=== PATIENT | female | born 1965 | race Caucasian/White ===

== ENCOUNTER 2020-04-25 13:52 | Observation (INO) ==
[2020-04-25] MEDS ORDERED: SODIUM CHLORIDE 0.9% 1000ML 1,000 ML IV STA (14:19)
[2020-04-25] MEDS ORDERED: NITROGLYCERIN 2% OINTMENT 30GM TUBE EXT STA (14:19)
--- NOTE | 2020-04-25 14:19 | Emergency Department Note ---
Impression & Plan Substernal chest pain ED Provider Note INFORMANT: Patient ED PROVIDER(S): Edward Quigley MD CHIEF COMPLAINT: Chest pain PLAN: Disposition: Admitted Condition: Good MEDICAL DECISION MAKING: Patient presented with substernal chest pain that radiated to the right. She had an abnormal ECG with anterior T wave inversions. The patient was given nitroglycerin and aspirin prehospital. She had Nitropaste applied in the ER. She was also hydrated with normal saline. Chest x-ray was unremarkable. Her CBC and chemistry panel were unremarkable except for hyperglycemia. Troponin was negative x1. Patient was treated with IV insulin. Given her risk factors further management in the hospital was deemed appropriate. Patient and significant other were in agreement. Consultation was made with the [facility] service. Triage Nursing notes reviewed and agree them. Vital Signs: reviewed and remarkable for no significant abnormalities Differential diagnosis: Cardiac ischemia, aortic dissection, pulmonary embolism, pneumothorax, pneumonia, pericarditis, myocarditis, esophageal rupture, GERD, cholecystitis, pancreatitis, musculoskeletal, as well as other pathologies. Diagnostics interpreted by me: ECG: Rate:78 Rhythm:Normal sinus [place]:Normal QRS:Normal ST segements:No elevation or depression. Ant TWI. Other:No PACs or PVCs. When compared to 08/03/18j Ant TWI has replaced NST anteriorly. Cardiac Monitoring:Cardiac monitoring ordered by me: The patient was placed on continuous cardiac monitoring and observed. It revealed a normal sinus rhythm at 75 beats per minute without ectopy or evidence of dysrhythmia. Imaging studies: Chest x-ray. Findings: A chest x-ray was performed and revealed no pneumothorax, effusion, infiltrate, pulmonary edema, free air under the diaphragm, or wide mediastinum. Consultation(s): Dr. Lundberg [facility] service HPI: The patient is a 54 year old female who presents to the Emergency Room with complaints of substernal chest pain. This started several hours ago and is sharp. The patient also notes the following associated symptoms, pain radiating to the right back, SOB. The patient has been given 2 NTG and ASA by EMS successfully relieving factors. Current pain is rated as 2/10. Pain was an 8/10. No covid exposures. Pt has been coughing for several weeks and was tested for COVID, negative. Pt does smoke. Pt denies LOC, headache, fevers, chills, diaphoresis, visual changes, neck pain, nausea, vomiting, abdominal pain, back pain, melena, hematochezia, urinary symptoms, numbness, weakness, lymphadenopathy, rash, or other complaints. ROS: See above HPI for pertinent positives & negatives. A total of 10 systems reviewed and were otherwise negative. PAST MEDICAL HISTORY:See Below, DM PAST SURGICAL HISTORY:See Below,Appy, C section FAMILY HISTORY:See Below SOCIAL HISTORY:See Below, Smoker HOME MEDICATIONS:See Below ALLERGIES:See Below VITALS:See Below PHYSICAL EXAMINATION: GENERAL: Awake, alert, well-appearing, in no distress HENT: Normocephalic, atraumatic. Oropharynx unremarkable. EYES: Normal conjunctiva. Sclera non-icteric. NECK: Inspection normal. Non-tender. Supple. No nuchal rigidity. FROM. No masses. RESPIRATORY: Clear to auscultation. No wheezes. No rales. Normal respiratory effort. CARDIAC: Normal rate. Normal rhythm. No murmurs. No rubs. Extremities warm and well perfused. Pulses equal. No JVD. GI: Soft, non-distended. No tenderness to palpation. No rebound or guarding. No masses. RECTAL: Deferred. MUSCULOSKELETAL: Atraumatic. Chest examination reveals no tenderness. The back is symmetrical on inspection without obvious abnormality. There is no CVA tenderness to palpation. No joint edema. LOWER EXTREMITIES: Calves are equal size bilaterally and non-tender. No edema. No discoloration. NEURO: Normal sensorium. No sensory or motor deficits noted. SKIN: No rash or jaundice noted. Edward Quigley MD Past Med/Surg History Medical History (Updated 04/25/20 @ 17:43 by Maximilian Lundberg MD) Elevated LFTs Social History Smoking Status: Current every day smoker Cigarettes Per Day: 20; Do You Dip or Chew Tobacco: No; Hx Alcohol Use: Yes Alcohol type: beer Hx Substance Use: No Preferred Language: Mauritanian Communication Ability: Effective Traveling Inventory Associate Required: No Beliefs That Will Affect Care: None Current Living Situation: Spouse Other Information That Helps Us Care for You: No Feels Safe at Home: Yes Safety Concerns: Feels Safe At This Time Assistive Devices: None Allergies Allergies Allergy/AdvReac Type Severity Reaction Status Date / Time bee venom protein (honey bee) Allergy Severe Anaphylaxis Verified 04/25/20 15:43 cephalexin [From Keflex] Allergy Mild Rash Verified 04/25/20 17:23 erythromycin base Allergy Mild Rash Verified 04/25/20 15:43 hydrocodone Allergy Mild RASH/VOMITI Verified 04/25/20 15:43 NG Macrolide Antibiotics Allergy Mild RASH Verified 04/25/20 15:43 meperidine Allergy Mild RASH/VOMITI Verified 04/25/20 15:43 NG Sulfa (Sulfonamide Allergy Mild RASH Verified 04/25/20 15:43 Antibiotics) sulfamethoxazole Allergy Mild RASH Verified 04/25/20 15:43 trimethoprim Allergy Mild RASH Verified 04/25/20 15:43 varenicline [From Chantix] AdvReac Intermediate INCREASE Verified 04/25/20 15:44 DEPRESSION Home Meds Home Medications Medication Instructions Recorded Confirmed baclofen 10 mg PO HS 04/25/20 04/25/20 citalopram [Celexa] 40 mg PO QAM 04/25/20 04/25/20 diclofenac sodium 75 mg PO BID 04/25/20 04/25/20 doxepin 100 mg PO HS 04/25/20 04/25/20 empagliflozin [Jardiance] 10 mg PO DAILY 04/25/20 04/25/20 epinephrine [EpiPen] 0.3 mg IM DIRECTED PRN 04/25/20 04/25/20 omeprazole 20 mg PO QAM 04/25/20 04/25/20 propranolol 10 mg PO QAM 04/25/20 04/25/20 quetiapine 50 mg PO TID 04/25/20 04/25/20 ropinirole 0.5 mg PO HS 04/25/20 04/25/20 simvastatin 40 mg PO HS 04/25/20 04/25/20 topiramate 25 mg PO BID 04/25/20 04/25/20 Results & Data (ED) Vital Signs Vital Signs - 24 hr 04/25/20 13:57 04/25/20 14:30 04/25/20 15:02 Temperature 37.0 C Temperature Source Oral Pulse Rate 78 Pulse Rate [Apical] 75 71 Respiratory Rate 16 20 18 Respiratory Effort / Characteristics Respiratory Depth Respiratory Pattern Blood Pressure 108/67 Blood Pressure [Right Arm] 105/61 87/63 L Blood Pressure Mean 80 Blood Pressure Mean [Right Arm] 75 71 Pulse Oximetry 94 94 94 Oxygen Delivery Method Room Air Room Air Room Air Sepsis Recent Fever Within 48 Hours No Sepsis New/Unexplained Change in Mental Status N/A Sepsis Action Taken by Nursing No Action Required 04/25/20 17:04 Temperature Temperature Source Pulse Rate Pulse Rate [Apical] 83 Respiratory Rate 20 Respiratory Effort / Characteristics Non-Labored Spontaneous Respiratory Depth Normal Respiratory Pattern Regular Blood Pressure Blood Pressure [Right Arm] 110/77 Blood Pressure Mean Blood Pressure Mean [Right Arm] 88 Pulse Oximetry 93 Oxygen Delivery Method Room Air Sepsis Recent Fever Within 48 Hours Sepsis New/Unexplained Change in Mental Status Sepsis Action Taken by Nursing Laboratory Data Result diagrams: 04/25/20 13:50 04/25/20 13:50 Lab Results 04/25/20 04/25/20 04/25/20 Range/Units 13:50 13:50 13:50 WBC 6.99 (4.8-10.8) K/uL RBC 4.23 (4.2-5.4) M/uL Hgb 12.8 (12.0-16.0) g/dL Hct 37.7 (37-47) % MCV 89.1 (80-100) fL MCH 30.3 (25-34) pg MCHC 34.0 (32-36) g/dL RDW Std Deviation 44.6 (36.4-46.3) fL RDW Coeff of Radha 13.6 (11.5-14.5) % Plt Count 266 (130-400) K/uL MPV 11.8 H (7.4-10.4) fL Immature Gran % (Auto) 0.1 % Neut % (Auto) 54.4 % Lymph % (Auto) 39.6 % [place]tinger % (Auto) 3.7 % Eos % (Auto) 1.9 % Baso % (Auto) 0.3 % Neut # (Auto) 3.80 (1.4-6.5) K/uL Lymph # (Auto) 2.77 (1.2-3.4) K/uL [place] # (Auto) 0.26 (0.11-0.59) K/uL Eos # (Auto) 0.13 (0-0.5) K/uL Baso # (Auto) 0.02 (0-0.2) K/uL Immature Gran # (Auto) 0.01 (0.00-0.02) K/uL PT 10.2 (9.0-12.0) Seconds INR 1.0 (0.9-1.1) APTT 31.0 (21.0-31.0) Seconds PTT Ratio 1.1 D-Dimer 390 (0-500) ug/L FEU Sodium 135 L (136-145) mmol/L Potassium 3.6 (3.5-5.1) mmol/L Chloride 104 (98-107) mmol/L Carbon Dioxide 23 (21-32) mmol/L Anion Gap 8.0 (3-11) BUN 10 (7-18) mg/dl Creatinine 1.05 (0.6-1.2) mg/dl Est Cr Clr Drug Dosing 57.3 ml/min Est GFR ( Amer) 69.7 Est GFR (Non-Af Amer) 60.2 BUN/Creatinine Ratio 9.4 L (10-20) Glucose 390 H* (70-99) mg/dl POC Glucose (70-99) mg/dl Calcium 9.8 (8.5-10.1) mg/dl Total Bilirubin 0.6 (0.2-1) mg/dl AST 73 H (15-37) U/L ALT 135 H (12-78) U/L Alkaline Phosphatase 137 H (45-117) U/L Troponin I < 0.015 (0-0.045) ng/ml Total Protein 7.7 (6.4-8.2) gm/dl Albumin 3.7 (3.4-5.0) gm/dl Globulin 4.0 (2.5-4.0) gm/dl Albumin/Globulin Ratio 0.9 (0.9-2) Lipase 380 (73-393) U/L Beta-Hydroxybutyric Acd 0.69 (0.2-2.81) mg/dl 04/25/20 Range/Units 16:39 WBC (4.8-10.8) K/uL RBC (4.2-5.4) M/uL Hgb (12.0-16.0) g/dL Hct (37-47) % MCV (80-100) fL MCH (25-34) pg MCHC (32-36) g/dL RDW Std Deviation (36.4-46.3) fL RDW Coeff of Radha (11.5-14.5) % Plt Count (130-400) K/uL MPV (7.4-10.4) fL Immature Gran % (Auto) % Neut % (Auto) % Lymph % (Auto) % [place]ting[place] % (Auto) % Eos % (Auto) % Baso % (Auto) % Neut # (Auto) (1.4-6.5) K/uL Lymph # (Auto) (1.2-3.4) K/uL [place] # (Auto) (0.11-0.59) K/uL Eos # (Auto) (0-0.5) K/uL Baso # (Auto) (0-0.2) K/uL Immature Gran # (Auto) (0.00-0.02) K/uL PT (9.0-12.0) Seconds INR (0.9-1.1) APTT (21.0-31.0) Seconds PTT Ratio D-Dimer (0-500) ug/L FEU Sodium (136-145) mmol/L Potassium (3.5-5.1) mmol/L Chloride (98-107) mmol/L Carbon Dioxide (21-32) mmol/L Anion Gap (3-11) BUN (7-18) mg/dl Creatinine (0.6-1.2) mg/dl Est Cr Clr Drug Dosing ml/min Est GFR ( Amer) Est GFR (Non-Af Amer) BUN/Creatinine Ratio (10-20) Glucose (70-99) mg/dl POC Glucose 325 H* (70-99) mg/dl Calcium (8.5-10.1) mg/dl Total Bilirubin (0.2-1) mg/dl AST (15-37) U/L ALT (12-78) U/L Alkaline Phosphatase (45-117) U/L Troponin I (0-0.045) ng/ml Total Protein (6.4-8.2) gm/dl Albumin (3.4-5.0) gm/dl Globulin (2.5-4.0) gm/dl Albumin/Globulin Ratio (0.9-2) Lipase (73-393) U/L Beta-Hydroxybutyric Acd (0.2-2.81) mg/dl Administered Medications Baclofen (Baclofen 10 Mg Tab) 10 mg PO HS ANNE-MARIE Stop: 05/25/20 20:59 Last Admin: 04/25/20 20:09 Dose: 10 mg Documented by: [id number] Doxepin HCl (Doxepin Hcl 50 Mg Capsule) 100 mg PO HS ANNE-MARIE Stop: 05/25/20 20:59 Last Admin: 04/25/20 20:10 Dose: 100 mg Documented by: [id number] Heparin Sodium (Porcine) (Heparin Sod 5,000 Unit/0.5 Ml Vial) 5,000 units SQ Q12 ANNE-MARIE Stop: 05/25/20 20:59 Last Admin: 04/25/20 20:08 Dose: 5,000 units Documented by: [id number] Cosigned by: [id number] Insulin Aspart (Insulin Aspart 100 Units/Ml 3 Ml Pen) 0 units SC ACHS ANNE-MARIE Stop: 05/25/20 20:59 Last Admin: 04/25/20 20:54 Dose: 5 units Documented by: [id number] Cosigned by: [id number] Quetiapine Fumarate (Quetiapine Fumarate 25 Mg Tablet) 50 mg PO TID ANNE-MARIE Stop: 05/25/20 20:59 Last Admin: 04/25/20 20:09 Dose: 50 mg Documented by: [id number] Ropinirole HCl (Ropinirole Hcl 0.25 Mg Tablet) 0.5 mg PO HS ANNE-MARIE Stop: 05/25/20 20:59 Last Admin: 04/25/20 20:09 Dose: 0.5 mg Documented by: [id number] Simvastatin (Simvastatin 40 Mg Tab) 40 mg PO HS ANNE-MARIE Stop: 05/25/20 20:59 Last Admin: 04/25/20 20:09 Dose: 40 mg Documented by: [id number] Topiramate (Topiramate 25 Mg Tab) 25 mg PO BID ANNE-MARIE Stop: 05/25/20 20:59 Last Admin: 04/25/20 20:30 Dose: 25 mg Documented by: [id number] Discontinued Medications Sodium Chloride (Nss 1000ml) 1,000 mls @ 125 mls/hr IV .Q8H STA Stop: 04/25/20 22:18 Last Infusion: 04/25/20 17:48 Dose: 0 mls/hr Documented by: [id number] Admin: 04/25/20 15:02 Dose: 125 mls/hr Documented by: [id number] Insulin Human Regular (Novolin-R Insulin Per Unit Charge) 10 units IV NOW STA Stop: 04/25/20 15:59 Last Admin: 04/25/20 17:05 Dose: 10 units Documented by: [id number] Cosigned by: [id number] Ioversol (Optiray 320 125ml) 117 ml IV ONCE ONE Stop: 04/25/20 16:10 Last Admin: 04/25/20 16:10 Dose: 117 ml Documented by: [id number] Nitroglycerin (Nitroglycerin 2% Ointment 30gm Tube) 0.5 inch EXT NOW STA Stop: 04/25/20 14:20 Last Admin: 04/25/20 15:02 Dose: 0.5 inch Documented by: [id number] Pantoprazole Sodium (Pantoprazole 40 Mg Tab) 40 mg PO NOW STA Stop: 04/25/20 17:20 Last Admin: 04/25/20 17:30 Dose: 40 mg Documented by: [id number] Discharge Plan Visit Data Chief Complaint: Chest Pain ED Provider: Edward Quigley Discharge Problem: Substernal chest pain Patient Disposition: Admitted As Inpatient Discharge Instructions Interventions: ED Discharge Assessment Last Done: 04/25/20 17:51
[2020-04-25 14:31] LABS: Basophils # (auto) 0.02 K/uL (0-0.2); Basophils % (auto) 0.3 %; Eosinophils # (auto) 0.13 K/uL (0-0.5); Eosinophils % (auto) 1.9 %; Hematocrit (blood only) 37.7 % (37-47); Hemoglobin 12.8 g/dL (12.0-16.0); Immature Granulocytes # (auto) 0.01 K/uL (0.00-0.02); Immature Granulocytes % (auto) 0.1 %; Lymphocytes # (auto) 2.77 K/uL (1.2-3.4); Lymphocytes % (auto) 39.6 %; Mean Corpuscular Hemoglobin 30.3 pg (25-34); Mean Corpuscular Volume 89.1 fL (80-100); Mean Platelet Volume 11.8 fL (7.4-10.4); Monocytes # (auto) 0.26 K/uL (0.11-0.59); Monocytes % (auto) 3.7 %; Neutrophils % (auto) 54.4 %; Platelet Count 266 K/uL (130-400); RDW Coefficient of Variation 13.6 % (11.5-14.5); RDW Standard Deviation 44.6 fL (36.4-46.3); Red Blood Count 4.23 M/uL (4.2-5.4); White Blood Count 6.99 K/uL (4.8-10.8)
--- NOTE | 2020-04-25 14:32 | XRay Report ---
XR chest 1V portable HISTORY: 54 years-old Female Chest Pain acute atypical chest pain COMPARISON: None TECHNIQUE: Portable AP view of the chest FINDINGS: Cardiomediastinal and hilar silhouettes are within normal limits. No pneumothorax, pleural effusion, or overt pulmonary edema. Ill-defined right lung base opacity is suggestive of summation density. Rem ote fracture of the posterior left sixth rib. IMPRESSION: Ill-defined subtle right lung base opacity is suggestive of summation density with atelec tasis or developing pneumonia considered less likely. ACT 112: Negative or not required by law. The above report was generated using voice recognition software. It may contain grammatical, syntax o r spelling errors. Electronically signed by: Freddie Petersen M.D. 04/25/2020 2:30 PM
[2020-04-25 15:01] LABS: D Dimer 390 ug/L FEU (0-500); Partial Thromboplastin Ratio 1.1; Prothrombin Time 10.2 Seconds (9.0-12.0)
[2020-04-25 15:47] LABS: Alanine Aminotransferase 135 U/L (12-78); Albumin Globulin Ratio 0.9 (0.9-2); Albumin Level 3.7 gm/dl (3.4-5.0); Alkaline Phosphatase 137 U/L (45-117); Aspartate Aminotransferase 73 U/L (15-37); BUN Creatinine Ratio 9.4 (10-20); Bilirubin,Total 0.6 mg/dl (0.2-1); Blood Urea Nitrogen 10 mg/dl (7-18); Calcium 9.8 mg/dl (8.5-10.1); Carbon Dioxide 23 mmol/L (21-32); Chloride 104 mmol/L (98-107); Creatinine Clr Calc Pharmacy 57.3 ml/min; Est GFR (African American) 69.7; Est GFR (Non-African American) 60.2; Glucose 390 mg/dl (70-99); Lipase 380 U/L (73-393); Potassium 3.6 mmol/L (3.5-5.1); Sodium 135 mmol/L (136-145); Total Protein 7.7 gm/dl (6.4-8.2); Troponin I < 0.015 ng/ml (0-0.045)
[2020-04-25] MEDS ORDERED: NovoLIN-R INSULIN PER UNIT CHARGE IV STA (15:58)
[2020-04-25 16:00] LABS: Beta-Hydroxybutyrate 0.69 mg/dl (0.2-2.81)
[2020-04-25] MEDS ORDERED: OPTIRAY 320 125ml IV ONE (16:09)
--- NOTE | 2020-04-25 16:21 | CT Scan Report ---
CT ANGIOGRAM OF THE CHEST CLINICAL HISTORY: Right-sided chest pain. Possible pulmonary embolism COMPARISON STUDY: Chest x-ray dated 04/25/2020 TECHNIQUE: Following the IV administration of 117 mL of Optiray-320, CT angiogram of the thorax was p erformed from the thoracic inlet to the lung bases utilizing the pulmonary embolus protocol. Images a re reviewed in the axial, sagittal, and coronal planes. IV contrast was administered without complica tion. MIP imaging was performed. A dose lowering technique was utilized adhering to the principles o f ALARA. CT DOSE: 326.90 mGy.cm FINDINGS: Visualized portions the upper abdomen reveal hepatic steatosis. There is a paratracheal lymph node the upper limits of normal in size. There is no hilar or axillary lymphadenopathy. There was no evidence of thoracic aortic dilatation. There were no pulmonary artery filling defects to indicate acute pulmonary embolism. No pleural effusions are visualized. There is pulmonary emphysema. There are minimal dependent atelectatic changes. There is a slight mosa ic attenuation pattern suggesting air trapping. There are no areas of parenchymal consolidation to in dicate pneumonia. IMPRESSION: 1. Pulmonary emphysema with evidence of air trapping 2. No evidence of focal pulmonary consolidation 2. No evidence of acute pulmonary embolism. ACT 112: Negative or not required by law. Electronically signed by: Chaparro Dupree M.D. 04/25/2020 4:19 PM
[2020-04-25] MEDS ORDERED: ALBUTEROL 0.083% NEBU SOLN 3 ML VIAL NEB PRN (17:17)
[2020-04-25] MEDS ORDERED: ALBUTEROL HFA 8 GM INHALER INH PRN (17:17)
[2020-04-25] MEDS ORDERED: PANTOprazole 40 MG TAB PO STA (17:19)
[2020-04-25] MEDS ORDERED: NITROGLYCERIN SL 0.4 MG/TAB TAB SL PRN (17:47)
--- NOTE | 2020-04-25 17:47 | History & Physical Report ---
Date of Service April 25, 2020 Assessment & Plan (1) Substernal chest pain: Has been complaining of substernal chest pain at work since this morning The pain radiates to the back in between shoulder blades with associated minimal shortness of breath EKG showed possible increased inversion in anterior leads initial troponin negative Observing telemetry with serial cardiac enzymes Cardiology consult for possible stress morning (2) Major depression: No acute issues Continue current medication (3) COPD (chronic obstructive pulmonary disease): Uses albuterol as needed Continues to smoke No acute exacerbation We will try nebulized bronchodilator as well (4) CKD (chronic kidney disease), stage III: Monitor PRP (5) Diabetes type 2, uncontrolled: Blood sugar is more than 350 Hold oral medications and put her on sliding scale Check hemoglobin A1c (6) Migraine: (7) GERD (gastroesophageal reflux disease): Denies any symptoms but has been taking diclofenac sodium 75 mg twice daily Substernal chest pain could be secondary to peptic ulcer disease We will hold off any diclofenac Continue omeprazole DVT prophylaxis Subcu heparin CODE STATUS Full History of Present Illness Chief Complaint: Chest tightness/pain with shortness of breath since this morning Primary Care Provider: Diogo Buckner DO She is a 54-year-old female with significant past medical history including moderate COPD, tobacco use disorder, type 2 diabetes, chronic kidney disease stage III, depression, hyperlipidemia and migraine has been complaining of chest tightness/pain while at work today. Her pain went to the back in between shoulder blades and she did not have any associated shortness of breath at that time. She denies any radiation of the pain to the extremities or to the neck and when asking further questioning she mentions to have some wheezing associated with shortness of breath. She denies any abdominal pain, any nausea and/or vomiting. She has been weak recently but denies any fever and/or chills. She has been taking diclofenac sodium 75 mg twice a day. In ER she was hemodynamically stable and EKG did not show questionable increase anterior T inversion without any increase in troponin and a CTA unremarkable. She was admitted to telemetry unit to rule out possible ACS. Allergies Allergy/AdvReac Type Severity Reaction Status Date / Time bee venom protein (honey bee) Allergy Severe Anaphylaxis Verified 04/25/20 15:43 cephalexin [From Keflex] Allergy Mild Rash Verified 04/25/20 17:23 erythromycin base Allergy Mild Rash Verified 04/25/20 15:43 hydrocodone Allergy Mild RASH/VOMITI Verified 04/25/20 15:43 NG Macrolide Antibiotics Allergy Mild RASH Verified 04/25/20 15:43 meperidine Allergy Mild RASH/VOMITI Verified 04/25/20 15:43 NG Sulfa (Sulfonamide Allergy Mild RASH Verified 04/25/20 15:43 Antibiotics) sulfamethoxazole Allergy Mild RASH Verified 04/25/20 15:43 trimethoprim Allergy Mild RASH Verified 04/25/20 15:43 varenicline [From Chantix] AdvReac Intermediate INCREASE Verified 04/25/20 15:44 DEPRESSION Home Medications Home Medications Medication Instructions Recorded Confirmed Type baclofen 10 mg PO HS 04/25/20 04/25/20 History citalopram [Celexa] 40 mg PO QAM 04/25/20 04/25/20 History diclofenac sodium 75 mg PO BID 04/25/20 04/25/20 History doxepin 100 mg PO HS 04/25/20 04/25/20 History empagliflozin [Jardiance] 10 mg PO DAILY 04/25/20 04/25/20 History epinephrine [EpiPen] 0.3 mg IM DIRECTED PRN 04/25/20 04/25/20 History omeprazole 20 mg PO QAM 04/25/20 04/25/20 History propranolol 10 mg PO QAM 04/25/20 04/25/20 History quetiapine 50 mg PO TID 04/25/20 04/25/20 History ropinirole 0.5 mg PO HS 04/25/20 04/25/20 History simvastatin 40 mg PO HS 04/25/20 04/25/20 History topiramate 25 mg PO BID 04/25/20 04/25/20 History Past Med/Surg History Medical History (Updated 04/25/20 @ 17:43 by Maximilian Lundberg MD) Elevated LFTs Social History Smoking Status: Current every day smoker Cigarettes Per Day: 20; Do You Dip or Chew Tobacco: No; Hx Alcohol Use: Yes Alcohol type: beer Hx Substance Use: No Preferred Language: Estonian Communication Ability: Effective Director Of Clinical Applications Required: No Beliefs That Will Affect Care: None Current Living Situation: Spouse Other Information That Helps Us Care for You: No Feels Safe at Home: Yes Safety Concerns: Feels Safe At This Time Assistive Devices: Glasses Review of Systems Review of Systems: All systems reviewed & are unremarkable except as noted in HPI & below Physical Exam Physical Exam: Lying in bed comfortably Constitutional: well developed and well nourished; no acute distress and not ill appearing Eyes: PERRL, conjunctivae normal, anicteric sclerae ENMT: external ear and nose normal, oropharynx normal Neck: trachea midline, no thyromegaly Respiratory: normal respiratory effort; no respiratory distress Auscultation: lungs clear to auscultation bilaterally and + wheezes (Minimal wheezing anteriorly) Cardiovascular: Rate/Rhythm: regular rate and regular rhythm Heart Sounds: no murmur Extremities: no edema Gastrointestinal (Abdomen): Inspection/Auscultation: abdomen normal to inspection and normal bowel sounds; abdomen not distended Percussion/Palpation: abdomen soft; abdomen nontender Musculoskeletal: No acute arthritis involving any joints Neurologic: moves all extremities; no focal motor deficits Psychiatric: A+Ox3, euthymic affect Lymphatic: no cervical or axillary lymphadenopathy Results & Data Results & Data ([facility]) Vital Signs (Past 12 Hours) Vital Signs Temp Pulse Pulse Resp BP BP Pulse Ox 04/25/20 17:04 83 20 110/77 93 04/25/20 15:02 71 18 87/63 L 94 04/25/20 14:30 75 20 105/61 94 04/25/20 13:57 37.0 C 78 16 108/67 94 Laboratory Results Short CBC 04/25/20 Range/Units 13:50 WBC 6.99 (4.8-10.8) K/uL Hgb 12.8 (12.0-16.0) g/dL Hct 37.7 (37-47) % Plt Count 266 (130-400) K/uL BMP 04/25/20 13:50 Sodium 135 L Potassium 3.6 Chloride 104 Carbon Dioxide 23 BUN 10 Creatinine 1.05 Glucose 390 H* Calcium 9.8 Cardiac Enzymes 04/25/20 Range/Units 13:50 Troponin I < 0.015 (0-0.045) ng/ml Liver Function 04/25/20 Range/Units 13:50 Total Bilirubin 0.6 (0.2-1) mg/dl AST 73 H (15-37) U/L ALT 135 H (12-78) U/L Alkaline Phosphatase 137 H (45-117) U/L Albumin 3.7 (3.4-5.0) gm/dl Medications Administered Current Inpatient Medications Albuterol (Albuterol Hfa 8 Gm Inhaler) 2 puffs INH Q6H PRN PRN Reason: Wheezing Stop: 05/25/20 17:29 Albuterol (Albuterol 0.083% Nebu Soln 3 Ml Vial) 2.5 mg NEB Q6R PRN PRN Reason: Wheezing Stop: 05/25/20 17:16 Sodium Chloride (Nss 1000ml) 1,000 mls @ 125 mls/hr IV .Q8H STA Stop: 04/25/20 22:18 Last Admin: 04/25/20 15:02 Dose: 125 mls/hr Documented by: Code Status & VTE Plan VTE Prophylaxis Plan VTE Prophylaxis will be ordered: Yes
--- NOTE | 2020-04-25 18:00 | Electrocardiogram Report ---
Test Reason : Blood Pressure : / mmHG Vent. Rate : 078 BPM Atrial Rate : 078 BPM P-R Int : 142 ms QRS Dur : 082 ms QT Int : 428 ms P-R-T Axes : 042 060 026 degrees QTc Int : 487 ms Normal sinus rhythm Prolonged QT Abnormal ECG When compared with ECG of 07-MAR-2013 19:09, T wave inversion more evident in Anterior leads Confirmed by Sang Mazariegos ([id number]) on 04/25/2020 5:59:50 PM Referred By: ER Confirmed By:Alnozo Mazariegos
--- NOTE | 2020-04-25 18:02 | Electrocardiogram Report ---
Test Reason : Blood Pressure : / mmHG Vent. Rate : 073 BPM Atrial Rate : 073 BPM P-R Int : 144 ms QRS Dur : 082 ms QT Int : 432 ms P-R-T Axes : 068 055 029 degrees QTc Int : 475 ms Normal sinus rhythm Prolonged QT Abnormal ECG When compared with ECG of 25-APR-2020 13:57, (unconfirmed) No significant change was found Confirmed by Sang Mazariegos ([id number]) on 04/25/2020 6:02:23 PM Referred By: REFERRED SELF Confirmed By:Alonzo Mazariegos
[2020-04-25] MEDS ORDERED: DEXTROSE 50% 50 ML SYRINGE IV PRN (19:00)
[2020-04-25] MEDS ORDERED: GLUCOSE 40% GEL 15 GM TUBE PO PRN (19:00)
[2020-04-25] MEDS ORDERED: CARBOHYDRATES FOR HYPOGLYCEMIA PO PRN (19:00)
[2020-04-25] MEDS ORDERED: GLUCOSE 10 TABS/TUBE PO PRN (19:00)
[2020-04-25] MEDS ORDERED: GLUCAGON FOR INJ 1 MG VIAL IM PRN (19:00)
[2020-04-25] MEDS: HEPARIN SOD 5,000 UNIT/0.5 ML VIAL SQ SCH (20:08)
[2020-04-25] MEDS: QUETIAPINE FUMARATE 25 MG TABLET PO SCH (20:09)
[2020-04-25] MEDS: TOPIRAMATE 25 MG TAB PO SCH (20:30)
[2020-04-25] MEDS: INSULIN ASPART 100 UNITS/ML 3 ML PEN SC SCH (20:54)
[2020-04-25] MEDS ORDERED: DOXEPIN HCL 50 MG CAPSULE PO SCH (21:00)
[2020-04-25] MEDS ORDERED: ROPINIROLE HCL 0.25 MG TABLET PO SCH (21:00)
[2020-04-25] MEDS ORDERED: BACLOFEN 10 MG TAB PO SCH (21:00)
[2020-04-25] MEDS ORDERED: SIMVASTATIN 40 MG TAB PO SCH (21:00)
[2020-04-26 02:16] LABS: BUN Creatinine Ratio 10.6 (10-20); Blood Urea Nitrogen 11 mg/dl (7-18); Calcium 8.8 mg/dl (8.5-10.1); Carbon Dioxide 28 mmol/L (21-32); Chloride 109 mmol/L (98-107); Creatinine Clr Calc Pharmacy 56.8 ml/min; Est GFR (African American) 68.9; Est GFR (Non-African American) 59.5; Glucose 200 mg/dl (70-99); Magnesium 1.8 mg/dl (1.8-2.4); Potassium 3.5 mmol/L (3.5-5.1); Sodium 141 mmol/L (136-145)
[2020-04-26 02:21] LABS: Troponin I < 0.015 ng/ml (0-0.045)
[2020-04-26 02:32] LABS: Basophils # (auto) 0.02 K/uL (0-0.2); Basophils % (auto) 0.3 %; Eosinophils # (auto) 0.17 K/uL (0-0.5); Eosinophils % (auto) 2.5 %; Hematocrit (blood only) 35.3 % (37-47); Hemoglobin 11.7 g/dL (12.0-16.0); Immature Granulocytes # (auto) 0.02 K/uL (0.00-0.02); Immature Granulocytes % (auto) 0.3 %; Lymphocytes # (auto) 3.11 K/uL (1.2-3.4); Lymphocytes % (auto) 46.2 %; Mean Corpuscular Hemoglobin 30.1 pg (25-34); Mean Corpuscular Hgb Conc 33.1 g/dL (32-36); Mean Corpuscular Volume 90.7 fL (80-100); Mean Platelet Volume 11.7 fL (7.4-10.4); Monocytes # (auto) 0.35 K/uL (0.11-0.59); Monocytes % (auto) 5.2 %; Neutrophils # (auto) 3.06 K/uL (1.4-6.5); Neutrophils % (auto) 45.5 %; Platelet Count 234 K/uL (130-400); RDW Coefficient of Variation 13.8 % (11.5-14.5); RDW Standard Deviation 45.6 fL (36.4-46.3); Red Blood Count 3.89 M/uL (4.2-5.4); White Blood Count 6.73 K/uL (4.8-10.8)
[2020-04-26] MEDS: INSULIN ASPART 100 UNITS/ML 3 ML PEN SC SCH ×3 (08:34→17:12)
[2020-04-26] MEDS: HEPARIN SOD 5,000 UNIT/0.5 ML VIAL SQ SCH (08:34)
[2020-04-26] MEDS: QUETIAPINE FUMARATE 25 MG TABLET PO SCH ×2 (08:35→14:00)
[2020-04-26] MEDS: TOPIRAMATE 25 MG TAB PO SCH (08:35)
--- NOTE | 2020-04-26 08:49 | Cardiology Consultation ---
Date of Consultation April 26, 2020 Assessment & Plan (1) Substernal chest pain: Patient with atypical chest pain, possibly musculoskeletal in nature based on description, worse with repetitive movements of her upper extremities while at work. Negative troponin x3 since admission She does have an abnormal EKG with anterior T wave inversions, similar to outpatient EKG's in 2019. At that time she underwent dobutamine stress echo which was negative for ischemia. Given her risk factors of CAD including DM, chronic tobacco abuse and family history of CABG, I think ischemic work up is warranted with repeat dobutamine stress test prior to discharge. Smoking cessation encouraged. Case discussed with Dr. Jones. Further recommendations pending review of stress test results. Patient to remain NPO until stress test is completed. (2) Abnormal EKG: (3) Tobacco abuse: (4) COPD (chronic obstructive pulmonary disease): Supervising Physician Co-Signing Physician Notes I have reviewed the case with Ramy, examined the medical record and examined the patient. I was also present during her dobutamine stress echocardiogram. By that study, she was negative for ischemia. I believe the patient therefore, can be discharged home as no further cardiac testing is indicated. History of Present Illness Reason for Consultation: Chest pain; abnormal EKG Requesting Physician: Dr. Lundberg Attending Physician: Dr. Jones History of Present Illness Patient is a 54 year old female with past history significant for COPD with chronic tobacco abuse (1 PPD for 40 years), dyslipidemia, DM, and family history of CAD with mother and father having CABG age 60's. She reports intermittent chest tightness over the last 6 months, comes and goes without relation to activity. She reports ongoing dyspnea, which she attributes to chronic tobacco abuse and COPD. She was recently treated for bronchitis. Yesterday when she awoke from sleep, she reported substernal chest "burning" and sharp pains that radiated to her right rib cage and around to her back. She went to work as usual. 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 She describes after about 2 hours, her chest pain progressively got worse with her arm movements. [place] her chest was "sore". No SOB, diaphoresis, palpitations, dizziness at the time. She came to the ER for evaluation due to her ongoing symptoms. Upon arrival to ER, Initial EKG demonstrated T wave inversions in anterior leads. when compared to prior EKG at [facility] in 2013, these T wave inversions were new. However when outpatient records reviewed, this EKG revealed similar findings to 2019 EKG in [facility]. She was treated with SL nitro and nitro patch. Symptoms slowly improved in the ER over the next few hours. Repeat EKG with stable findings. Troponin negative x3 since admission. AT time of consult, patient feeling well. Symptoms resolved and no recurrent chest pain since last night. No unusual SOB. Ongoing cough reported, but this is chronic per patient. No dizziness, syncope or near syncope. no orthopnea, PND or edema. She denies cardiac history of CAD, [place], CHF, valvular disease or arrhythmia. She had a dobutamine stress echo in 2019 due to atypical chest pain and abnormal EKG, which was negative for ischemia. Allergies Allergy/AdvReac Type Severity Reaction Status Date / Time bee venom protein (honey bee) Allergy Severe Anaphylaxis Verified 04/25/20 15:43 cephalexin [From Keflex] Allergy Mild Rash Verified 04/25/20 17:23 erythromycin base Allergy Mild Rash Verified 04/25/20 15:43 hydrocodone Allergy Mild RASH/VOMITI Verified 04/25/20 15:43 NG Macrolide Antibiotics Allergy Mild RASH Verified 04/25/20 15:43 meperidine Allergy Mild RASH/VOMITI Verified 04/25/20 15:43 NG Sulfa (Sulfonamide Allergy Mild RASH Verified 04/25/20 15:43 Antibiotics) sulfamethoxazole Allergy Mild RASH Verified 04/25/20 15:43 trimethoprim Allergy Mild RASH Verified 04/25/20 15:43 varenicline [From Chantix] AdvReac Intermediate INCREASE Verified 04/25/20 15:44 DEPRESSION Home Medications Home Medications Medication Instructions Recorded Confirmed Type baclofen 10 mg PO HS 04/25/20 04/25/20 History citalopram [Celexa] 40 mg PO QAM 04/25/20 04/25/20 History diclofenac sodium 75 mg PO BID 04/25/20 04/25/20 History doxepin 100 mg PO HS 04/25/20 04/25/20 History empagliflozin [Jardiance] 10 mg PO DAILY 04/25/20 04/25/20 History epinephrine [EpiPen] 0.3 mg IM DIRECTED PRN 04/25/20 04/25/20 History omeprazole 20 mg PO QAM 04/25/20 04/25/20 History propranolol 10 mg PO QAM 04/25/20 04/25/20 History quetiapine 50 mg PO TID 04/25/20 04/25/20 History ropinirole 0.5 mg PO HS 04/25/20 04/25/20 History simvastatin 40 mg PO HS 04/25/20 04/25/20 History topiramate 25 mg PO BID 04/25/20 04/25/20 History Patient History Medical History (Updated 04/26/20 @ 09:29 by Sylvia Mccann PA-C) CKD (chronic kidney disease), stage III COPD (chronic obstructive pulmonary disease) Diabetes type 2, uncontrolled Elevated LFTs Major depression Family History (Updated 04/26/20 @ 09:25 by Sylvia Mccann PA-C) Father Coronary heart disease Mother Coronary heart disease Social History Smoking Status: Current every day smoker Cigarettes Per Day: 20; Do You Dip or Chew Tobacco: No; Hx Alcohol Use: Yes Alcohol type: beer Hx Substance Use: No Preferred Language: [place] Island[place] Communication Ability: Effective Hand I Cutter Required: No Beliefs That Will Affect Care: None Current Living Situation: Spouse Other Information That Helps Us Care for You: No Feels Safe at Home: Yes Safety Concerns: Feels Safe At This Time Assistive Devices: None Review of Systems Review of Systems: All systems reviewed & are unremarkable except as noted in HPI & below Physical Exam Constitutional: WD/WN, vitals as above well nourished and average body habitus; no acute distress Neck: normal visual inspection Respiratory: normal respiratory effort Auscultation: + diminished lung sounds; no crackles, no rales, no rhonchi and no wheezes Cardiovascular: RRR, no murmur, no edema Gastrointestinal (Abdomen): normal bowel sounds, soft, nontender, no hepatosplenomegaly Musculoskeletal: no cyanosis or clubbing, extremities motor strength 5/5 Neurologic: PERRL, EOMI, accommodation nl, no face palsy, no dysarthria Psychiatric: A+Ox3, euthymic affect Results & Data ([facility]) Vital Signs (Past 12 Hours) Vital Signs Temp Pulse Pulse Pulse Resp BP Pulse Ox 04/26/20 07:48 36.7 C 73 18 96/58 L 96 04/26/20 02:52 36.6 C 77 16 110/71 91 04/25/20 23:38 36.8 C 76 18 103/59 L 92 04/25/20 23:30 83 Laboratory Results 04/26/20 04/26/20 04/26/20 Range/Units 07:31 01:50 01:50 WBC 6.73 (4.8-10.8) K/uL RBC 3.89 L (4.2-5.4) M/uL Hgb 11.7 L (12.0-16.0) g/dL Hct 35.3 L (37-47) % MCV 90.7 (80-100) fL MCH 30.1 (25-34) pg MCHC 33.1 (32-36) g/dL RDW Std Deviation 45.6 (36.4-46.3) fL RDW Coeff of Radha 13.8 (11.5-14.5) % Plt Count 234 (130-400) K/uL MPV 11.7 H (7.4-10.4) fL Immature Gran % (Auto) 0.3 % Neut % (Auto) 45.5 % Lymph % (Auto) 46.2 % [place] % (Auto) 5.2 % Eos % (Auto) 2.5 % Baso % (Auto) 0.3 % Neut # (Auto) 3.06 (1.4-6.5) K/uL Lymph # (Auto) 3.11 (1.2-3.4) K/uL [place] # (Auto) 0.35 (0.11-0.59) K/uL Eos # (Auto) 0.17 (0-0.5) K/uL Baso # (Auto) 0.02 (0-0.2) K/uL Immature Gran # (Auto) 0.02 (0.00-0.02) K/uL PT (9.0-12.0) Seconds INR (0.9-1.1) APTT (21.0-31.0) Seconds PTT Ratio D-Dimer (0-500) ug/L FEU Sodium 141 (136-145) mmol/L Potassium 3.5 (3.5-5.1) mmol/L Chloride 109 H (98-107) mmol/L Carbon Dioxide 28 (21-32) mmol/L Anion Gap 4.0 (3-11) BUN 11 (7-18) mg/dl Creatinine 1.06 (0.6-1.2) mg/dl Est Cr Clr Drug Dosing 56.8 ml/min Est GFR ( Amer) 68.9 Est GFR (Non-Af Amer) 59.5 BUN/Creatinine Ratio 10.6 (10-20) Glucose 200 H (70-99) mg/dl POC Glucose 242 H (70-99) mg/dl Calcium 8.8 (8.5-10.1) mg/dl Magnesium 1.8 (1.8-2.4) mg/dl Total Bilirubin (0.2-1) mg/dl AST (15-37) U/L ALT (12-78) U/L Alkaline Phosphatase (45-117) U/L Troponin I < 0.015 (0-0.045) ng/ml Total Protein (6.4-8.2) gm/dl Albumin (3.4-5.0) gm/dl Globulin (2.5-4.0) gm/dl Albumin/Globulin Ratio (0.9-2) Lipase (73-393) U/L Beta-Hydroxybutyric Acd (0.2-2.81) mg/dl 04/25/20 04/25/20 04/25/20 Range/Units 20:35 20:17 16:39 WBC (4.8-10.8) K/uL RBC (4.2-5.4) M/uL Hgb (12.0-16.0) g/dL Hct (37-47) % MCV (80-100) fL MCH (25-34) pg MCHC (32-36) g/dL RDW Std Deviation (36.4-46.3) fL RDW Coeff of Radha (11.5-14.5) % Plt Count (130-400) K/uL MPV (7.4-10.4) fL Immature Gran % (Auto) % Neut % (Auto) % Lymph % (Auto) % [place] % (Auto) % Eos % (Auto) % Baso % (Auto) % Neut # (Auto) (1.4-6.5) K/uL Lymph # (Auto) (1.2-3.4) K/uL [place] # (Auto) (0.11-0.59) K/uL Eos # (Auto) (0-0.5) K/uL Baso # (Auto) (0-0.2) K/uL Immature Gran # (Auto) (0.00-0.02) K/uL PT (9.0-12.0) Seconds INR (0.9-1.1) APTT (21.0-31.0) Seconds PTT Ratio D-Dimer (0-500) ug/L FEU Sodium (136-145) mmol/L Potassium (3.5-5.1) mmol/L Chloride (98-107) mmol/L Carbon Dioxide (21-32) mmol/L Anion Gap (3-11) BUN (7-18) mg/dl Creatinine (0.6-1.2) mg/dl Est Cr Clr Drug Dosing ml/min Est GFR ( Amer) Est GFR (Non-Af Amer) BUN/Creatinine Ratio (10-20) Glucose (70-99) mg/dl POC Glucose 211 H 325 H* (70-99) mg/dl Calcium (8.5-10.1) mg/dl Magnesium (1.8-2.4) mg/dl Total Bilirubin (0.2-1) mg/dl AST (15-37) U/L ALT (12-78) U/L Alkaline Phosphatase (45-117) U/L Troponin I < 0.015 (0-0.045) ng/ml Total Protein (6.4-8.2) gm/dl Albumin (3.4-5.0) gm/dl Globulin (2.5-4.0) gm/dl Albumin/Globulin Ratio (0.9-2) Lipase (73-393) U/L Beta-Hydroxybutyric Acd (0.2-2.81) mg/dl 04/25/20 04/25/20 04/25/20 Range/Units 13:50 13:50 13:50 WBC 6.99 (4.8-10.8) K/uL RBC 4.23 (4.2-5.4) M/uL Hgb 12.8 (12.0-16.0) g/dL Hct 37.7 (37-47) % MCV 89.1 (80-100) fL MCH 30.3 (25-34) pg MCHC 34.0 (32-36) g/dL RDW Std Deviation 44.6 (36.4-46.3) fL RDW Coeff of Radha 13.6 (11.5-14.5) % Plt Count 266 (130-400) K/uL MPV 11.8 H (7.4-10.4) fL Immature Gran % (Auto) 0.1 % Neut % (Auto) 54.4 % Lymph % (Auto) 39.6 % [place] % (Auto) 3.7 % Eos % (Auto) 1.9 % Baso % (Auto) 0.3 % Neut # (Auto) 3.80 (1.4-6.5) K/uL Lymph # (Auto) 2.77 (1.2-3.4) K/uL [place] # (Auto) 0.26 (0.11-0.59) K/uL Eos # (Auto) 0.13 (0-0.5) K/uL Baso # (Auto) 0.02 (0-0.2) K/uL Immature Gran # (Auto) 0.01 (0.00-0.02) K/uL PT 10.2 (9.0-12.0) Seconds INR 1.0 (0.9-1.1) APTT 31.0 (21.0-31.0) Seconds PTT Ratio 1.1 D-Dimer 390 (0-500) ug/L FEU Sodium 135 L (136-145) mmol/L Potassium 3.6 (3.5-5.1) mmol/L Chloride 104 (98-107) mmol/L Carbon Dioxide 23 (21-32) mmol/L Anion Gap 8.0 (3-11) BUN 10 (7-18) mg/dl Creatinine 1.05 (0.6-1.2) mg/dl Est Cr Clr Drug Dosing 57.3 ml/min Est GFR ( Amer) 69.7 Est GFR (Non-Af Amer) 60.2 BUN/Creatinine Ratio 9.4 L (10-20) Glucose 390 H* (70-99) mg/dl POC Glucose (70-99) mg/dl Calcium 9.8 (8.5-10.1) mg/dl Magnesium (1.8-2.4) mg/dl Total Bilirubin 0.6 (0.2-1) mg/dl AST 73 H (15-37) U/L ALT 135 H (12-78) U/L Alkaline Phosphatase 137 H (45-117) U/L Troponin I < 0.015 (0-0.045) ng/ml Total Protein 7.7 (6.4-8.2) gm/dl Albumin 3.7 (3.4-5.0) gm/dl Globulin 4.0 (2.5-4.0) gm/dl Albumin/Globulin Ratio 0.9 (0.9-2) Lipase 380 (73-393) U/L Beta-Hydroxybutyric Acd 0.69 (0.2-2.81) mg/dl Diagnostic Findings EKG on admission: Normal sinus rhythm ST & T wave abnormality, in anterior leads, new compared to prior EKG in [facility] in 2012, however, when compared to prior E[facility] in [facility], she had similar T wave inversion in 2019. Repeat EKG: NSR with T wave inversion in anterior lead, similar to prior EKG Telemetry reviewed: NSR, with rare PVC Chest CT on admission: 1. Pulmonary emphysema with evidence of air trapping 2. No evidence of focal pulmonary consolidation 2. No evidence of acute pulmonary embolism. Chest xray on admission; IMPRESSION: Ill-defined subtle right lung base opacity is suggestive of summation density with atelectasis or developing pneumonia considered less likely. Dobutamine stress echo report reviewed dated 07/2018: Normal LV systolic function. No inducible ischemia. No significant valvular heart disease Medications Administered Medications baclofen 10 mg PO HS 04/25/20 [History Confirmed 04/25/20] citalopram [Celexa] 40 mg PO QAM 04/25/20 [History Confirmed 04/25/20] diclofenac sodium 75 mg PO BID 04/25/20 [History Confirmed 04/25/20] doxepin 100 mg PO HS 04/25/20 [History Confirmed 04/25/20] empagliflozin [Jardiance] 10 mg PO DAILY 04/25/20 [History Confirmed 04/25/20] epinephrine [EpiPen] 0.3 mg IM DIRECTED PRN 04/25/20 [History Confirmed 04/25/20] omeprazole 20 mg PO QAM 04/25/20 [History Confirmed 04/25/20] propranolol 10 mg PO QAM 04/25/20 [History Confirmed 04/25/20] quetiapine 50 mg PO TID 04/25/20 [History Confirmed 04/25/20] ropinirole 0.5 mg PO HS 04/25/20 [History Confirmed 04/25/20] simvastatin 40 mg PO HS 04/25/20 [History Confirmed 04/25/20] topiramate 25 mg PO BID 04/25/20 [History Confirmed 04/25/20] Home Medications Albuterol (Albuterol Hfa 8 Gm Inhaler) 2 puffs INH Q6H PRN PRN Reason: Wheezing Stop: 05/25/20 17:29 Albuterol (Albuterol 0.083% Nebu Soln 3 Ml Vial) 2.5 mg NEB Q6R PRN PRN Reason: Wheezing Stop: 05/25/20 17:16 Baclofen (Baclofen 10 Mg Tab) 10 mg PO [facility] Stop: 05/25/20 20:59 Last Admin: 04/25/20 20:09 Dose: 10 mg Documented by: Citalopram Hydrobromide (Citalopram 40 Mg Tab) 40 mg PO QAM [facility] Stop: 05/26/20 08:59 Last Admin: 04/26/20 08:35 Dose: 40 mg Documented by: Dextrose (Dextrose 50% 50 Ml Syringe) 25 - 50 ml IV UD PRN; Protocol PRN Reason: Hypoglycemia Protocol Stop: 05/25/20 18:59 Doxepin HCl (Doxepin Hcl 50 Mg Capsule) 100 mg PO [facility] Stop: 05/25/20 20:59 Last Admin: 04/25/20 20:10 Dose: 100 mg Documented by: Glucagon (Glucagon For Inj 1 Mg Vial) 1 mg IM UD PRN; Protocol PRN Reason: Hypoglycemia Protocol Stop: 05/25/20 18:59 Glucose (Glucose 40% Gel 15 Gm Tube) 15 - 30 gm PO UD PRN; Protocol PRN Reason: Hypoglycemia Protocol Stop: 05/25/20 18:59 Glucose (Glucose 10 Tabs/Tube) 4 - 8 tabs PO UD PRN; Protocol PRN Reason: Hypoglycemia Protocol Stop: 05/25/20 18:59 Heparin Sodium (Porcine) (Heparin Sod 5,000 Unit/0.5 Ml Vial) 5,000 units SQ Q12 [facility] Stop: 05/25/20 20:59 Last Admin: 04/26/20 08:34 Dose: 5,000 units Documented by: Insulin Aspart (Insulin Aspart 100 Units/Ml 3 Ml Pen) 0 units SC ACHS [facility] Stop: 05/25/20 20:59 Last Admin: 04/26/20 08:34 Dose: 6 units Documented by: Miscellaneous (Carbohydrates For Hypoglycemia ) 15 - 30 gm PO UD PRN PRN Reason: Hypoglycemia Treatment Stop: 05/25/20 18:59 Nitroglycerin (Nitroglycerin Sl 0.4 Mg/Tab Tab) 0.4 mg SL PRN PRN PRN Reason: Chest Pain Stop: 05/25/20 17:46 Pantoprazole Sodium ([facility] 40 Mg Tab) [facility] Stop: 05/26/20 08:59 Last Admin: 04/26/20 08:35 Dose: 40 mg Documented by: Propranolol HCl (Propranolol Hcl 10 Mg Tab) 10 mg PO QAM [facility] Stop: 05/26/20 08:59 Last Admin: 04/26/20 08:35 Dose: 10 mg Documented by: Quetiapine Fumarate (Quetiapine Fumarate 25 Mg Tablet) 50 mg PO TID [facility] Stop: 05/25/20 20:59 Last Admin: 04/26/20 08:35 Dose: 50 mg Documented by: Ropinirole HCl (Ropinirole Hcl 0.25 Mg Tablet) 0.5 mg PO [facility] Stop: 05/25/20 20:59 Last Admin: 04/25/20 20:09 Dose: 0.5 mg Documented by: Simvastatin (Simvastatin 40 Mg Tab) 40 mg PO [facility] Stop: 05/25/20 20:59 Last Admin: 04/25/20 20:09 Dose: 40 mg Documented by: Topiramate (Topiramate 25 Mg Tab) 25 mg PO BID [facility] Stop: 05/25/20 20:59 Last Admin: 04/26/20 08:35 Dose: 25 mg Documented by:
[2020-04-26] MEDS ORDERED: PANTOprazole 40 MG TAB PO SCH (09:00)
[2020-04-26] MEDS ORDERED: CITALOPRAM 40 MG TAB PO SCH (09:00)
[2020-04-26] MEDS ORDERED: PROPRANOLOL HCL 10 MG TAB PO SCH (09:00)
[2020-04-26] MEDS ORDERED: ATROPINE SULFATE 0.1 MG/ML 10ML SYR IV ONE (10:32)
[2020-04-26] MEDS ORDERED: DOBUTamine HCL 12.5 MG/ML 20 ML VIAL IV ONE (10:32)
[2020-04-26] MEDS ORDERED: METOPROLOL TARTRATE 1 MG/ML VIAL IV ONE (10:32)
[2020-04-26] MEDS ORDERED: PERFLUTREN LIPID MICROSPHERE (DEFINITY) IV ONE (11:11)
--- NOTE | 2020-04-26 12:45 | Electrocardiogram Report ---
Test Reason : Blood Pressure : / mmHG Vent. Rate : 069 BPM Atrial Rate : 069 BPM P-R Int : 154 ms QRS Dur : 082 ms QT Int : 420 ms P-R-T Axes : 073 069 046 degrees QTc Int : 450 ms Normal sinus rhythm Nonspecific ST and T wave abnormality Abnormal ECG When compared with ECG of 25-APR-2020 15:49, No significant change was found Confirmed by Sang Mazariegos ([id number]) on 04/26/2020 12:45:42 PM Referred By: REFERRED SELF Confirmed By:Alonzo Mazariegos
--- NOTE | 2020-04-26 16:01 | Hospitalist Progress Note ---
Date of Service April 26, 2020 Assessment & Plan (1) Substernal chest pain: Present on admission with chest pain radiated between shoulder blades associated with SOB Abnormal EKG with anterior T wave inversions, similar to outpatient EKG's in 2019. Troponin x3 negative cardiology on board Dobutamine stress echo done showed was negative for ischemia. Ok from cardiology standpoint to discharge home Continue propranolol and statin Counseling on smoking cessation resolved (2) Major depression: No acute issues Continue current medication (3) COPD (chronic obstructive pulmonary disease): No acute exacerbation Continue albuterol inhaler Smoking cessation discussed (4) CKD (chronic kidney disease), stage III: Monitor PRP (5) Diabetes type 2, uncontrolled: Blood sugar is more than 350 on admission Will resume PO diabetic med Continue lantus and insulin sliding scale while in the hospital Continue monitor BS closely (6) Migraine: Continue propranolol Stable (7) GERD (gastroesophageal reflux disease): Continue omeprazole DVT prophylaxis Subcu heparin CODE STATUS Full Admission and Anticipated Discharge Date Admission Date: April 25, 2020 Subjective Pt was seen and examined Lying in bed with no distress Pt said that she feels fine She had no pain Denies any chest pain, palpitation, dizziness and SOB Physical Exam Physical Exam: General- No acute distress Head- atraumatic Eyes- PERRL, EOMI, ENT- oropharynx clear Neck- supple, no JVD Lungs- clear to auscultation Heart- regular rhythm; no murmur Abdomen- normal bowel sounds, soft, nontender Extremities- no calf tenderness Neuro- alert, oriented x 3; PERRL, EOMI; no facial palsy; no dysarthria Skin- warm & dry Results & Data Results & Data ([facility]) Vital Signs (Past 12 Hours) Vital Signs Temp Pulse Pulse Pulse Resp BP Pulse Ox 04/26/20 15:07 36.6 C 66 15 103/65 95 04/26/20 15:04 64 04/26/20 11:53 36.6 C 77 19 106/70 95 04/26/20 07:48 36.7 C 73 18 96/58 L 96
--- NOTE | 2020-04-28 09:51 | Discharge Summary ---
Date of Service April 26, 2020 Admission HPI Per Admitting Provider She is a 54-year-old female with significant past medical history including moderate COPD, tobacco use disorder, type 2 diabetes, chronic kidney disease stage III, depression, hyperlipidemia and migraine has been complaining of chest tightness/pain while at work today. Her pain went to the back in between shoulder blades and she did not have any associated shortness of breath at that time. She denies any radiation of the pain to the extremities or to the neck and when asking further questioning she mentions to have some wheezing associated with shortness of breath. She denies any abdominal pain, any nausea and/or vomiting. She has been weak recently but denies any fever and/or chills. She has been taking diclofenac sodium 75 mg twice a day. In ER she was hemodynamically stable and EKG did not show questionable increase anterior T inversion without any increase in troponin and a CTA unremarkable. She was admitted to telemetry unit to rule out possible ACS. Admission Exam Per Admitting Provider Physical Exam: Lying in bed comfortably Constitutional: well developed and well nourished; no acute distress and not ill appearing Eyes: PERRL, conjunctivae normal, anicteric sclerae ENMT: external ear and nose normal, oropharynx normal Neck: trachea midline, no thyromegaly Respiratory: normal respiratory effort; no respiratory distress Auscultation: lungs clear to auscultation bilaterally and + wheezes (Minimal wheezing anteriorly) Cardiovascular: regular rate and regular rhythm Heart Sounds: no murmur Extre mities: no edema Gastrointestinal: abdomen normal to inspection and normal bowel sounds; abdomen not distended Percussion/Palpation: abdomen soft; abdomen nontender Musculoskeletal: No acute arthritis involving any joints Neurologic: moves all extremities; no focal motor deficits Psychiatric: A+Ox3, euthymic affect Lymphatic: no cervical or axillary lymphadenopathy Principal Diagnosis Substernal chest pain: Major depression: COPD (chronic obstructive pulmonary disease): CKD (chronic kidney disease), stage III: Diabetes type 2, uncontrolled: Discharge Exam General- No acute distress Head- atraumatic Eyes- PERRL, EOMI, ENT- oropharynx clear Neck- supple, no JVD Lungs- clear to auscultation Heart- regular rhythm; no murmur Abdomen- normal bowel sounds, soft, nontender Extremities- no calf tenderness Neuro- alert, oriented x 3; PERRL, EOMI; no facial palsy; no dysarthria Skin- warm & dry Discharge Data Allergies Allergy/AdvReac Type Severity Reaction Status Date / Time bee venom protein (honey bee) Allergy Severe Anaphylaxis Verified 04/25/20 15:43 cephalexin [From Keflex] Allergy Mild Rash Verified 04/25/20 17:23 erythromycin base Allergy Mild Rash Verified 04/25/20 15:43 hydrocodone Allergy Mild RASH/VOMITI Verified 04/25/20 15:43 NG Macrolide Antibiotics Allergy Mild RASH Verified 04/25/20 15:43 meperidine Allergy Mild RASH/VOMITI Verified 04/25/20 15:43 NG Sulfa (Sulfonamide Allergy Mild RASH Verified 04/25/20 15:43 Antibiotics) sulfamethoxazole Allergy Mild RASH Verified 04/25/20 15:43 trimethoprim Allergy Mild RASH Verified 04/25/20 15:43 varenicline [From Chantix] AdvReac Intermediate INCREASE Verified 04/25/20 15:44 DEPRESSION Consultations 04/25/20 16:38 ED Decision to Admit Stat 04/25/20 17:48 Consult Cardiology Routine Ordered Studies 04/25/20 15:42 CT angio chest PE protocol Stat CT ANGIOGRAM OF THE CHEST CLINICAL HISTORY: Right-sided chest pain. Possible pulmonary embolism COMPARISON STUDY: Chest x-ray dated 04/25/2020 TECHNIQUE: Following the IV administration of 117 mL of Optiray-320, CT angiogram of the thorax was performed from the thoracic inlet to the lung bases utilizing the pulmonary embolus protocol. Images are reviewed in the axial, sagittal, and coronal planes. IV contrast was administered without complication. MIP imaging was performed. A dose lowering technique was utilized adhering to the principles of ALARA. CT DOSE: 326.90 mGy.cm FINDINGS: Visualized portions the upper abdomen reveal hepatic steatosis. There is a paratracheal lymph node the upper limits of normal in size. There is no hilar or axillary lymphadenopathy. There was no evidence of thoracic aortic dilatation. There were no pulmonary artery filling defects to indicate acute pulmonary embolism. No pleural effusions are visualized. There is pulmonary emphysema. There are minimal dependent atelectatic changes. There is a slight mosaic attenuation pattern suggesting air trapping. There are no areas of parenchymal consolidation to indicate pneumonia. IMPRESSION: 1. Pulmonary emphysema with evidence of air trapping 2. No evidence of focal pulmonary consolidation 2. No evidence of acute pulmonary embolism. ACT 112: Negative or not required by law. Electronically signed by: Chaparro Dupree M.D. 04/25/2020 4:19 PM Dictated: 04/25/20 1616 Transcribed: 04/25/20 1616 XR chest 1V portable HISTORY: 54 years-old Female Chest Pain acute atypical chest pain COMPARISON: None TECHNIQUE: Portable AP view of the chest FINDINGS: Cardiomediastinal and hilar silhouettes are within normal limits. No pneumothorax, pleural effusion, or overt pulmonary edema. Ill-defined right lung base opacity is suggestive of summation density. Remote fracture of the posterior left sixth rib. IMPRESSION: Ill-defined subtle right lung base opacity is suggestive of summation density with atelectasis or developing pneumonia considered less likely. ACT 112: Negative or not required by law. The above report was generated using voice recognition software. It may contain grammatical, syntax or spelling errors. Electronically signed by: Freddie Petersen M.D. 04/25/2020 2:30 PM Dictated: 04/25/201426 Transcribed: 04/25/201426 Hospital Course (1) Substernal chest pain: Present on admission with chest pain radiated between shoulder blades associated with SOB Abnormal EKG with anterior T wave inversions, similar to outpatient EKG's in 2019. Troponin x3 negative cardiology on board Dobutamine stress echo done showed was negative for ischemia. Ok from cardiology standpoint to discharge home Continue propranolol and statin Counseling on smoking cessation resolved (2) Major depression: No acute issues Continue current medication (3) COPD (chronic obstructive pulmonary disease): No acute exacerbation Continue albuterol inhaler Smoking cessation discussed (4) CKD (chronic kidney disease), stage III: Monitor PRP (5) Diabetes type 2, uncontrolled: Blood sugar is more than 350 on admission Will resume PO diabetic med Continue lantus and insulin sliding scale while in the hospital Continue monitor BS closely (6) Migraine: Continue propranolol Stable (7) GERD (gastroesophageal reflux disease): Continue omeprazole DVT prophylaxis Subcu heparin CODE STATUS Full Total Time Total Time Spent Total Time Spent (In Minutes): 35 minutes Total Time Includes: Examination of the Patient, Discharge Planning, Medication Reconciliation, Communication With Other Providers and Other Discharge Plan Discharge Items Patient Disposition: Home - Self-Care Reason For Visit: CHEST PAIN,EKG CHANGES Discharge Diagnosis: Substernal chest pain: Major depression: COPD (chronic obstructive pulmonary disease): CKD (chronic kidney disease), stage III: Diabetes type 2, uncontrolled: Activity: Resume your previous activity Non-emergency contact: Primary Care Provider Call non-emergency contact if: you have any medication questions Follow-up/Referrals: Diogo Buckner V., [Primary Care Provider] - Diet: Carb Consistent or DM2 and Heart Healthy Addtl Attending Provider Instructions: Follow up with primary care provider Dr. Soares on 04/30 @ 11AM Follow up a healthy diet and limited concentrated sweet intake Continue monitor your blood sugar and bring your blood sugar log at your next appointment with your provider Counseling on weight loss to help with your diabetes Counseling on smoking cessation seek medical attention if chest pain reoccurs Pending Studies at Discharge: No Stand-Alone Forms: My [facility] [employer], Smoking Cessation Medications and DC Order Prescriptions: Continued citalopram [Celexa] 40 mg tablet 40 mg PO QAM RF: 0 topiramate 25 mg tablet 25 mg PO BID RF: 0 simvastatin 40 mg tablet 40 mg PO HS RF: 0 propranolol 10 mg tablet 10 mg PO QAM RF: 0 baclofen 10 mg tablet 10 mg PO HS RF: 0 doxepin 100 mg capsule 100 mg PO HS RF: 0 ropinirole 0.5 mg tablet 0.5 mg PO HS RF: 0 omeprazole 20 mg capsule,delayed release(DR/EC) 20 mg PO QAM RF: 0 diclofenac sodium 75 mg tablet,delayed release (DR/EC) 75 mg PO BID RF: 0 epinephrine [EpiPen] 0.3 mg/0.3 mL Auto-Injector 0.3 mg IM DIRECTED PRN (Reason: Allergic Reaction) RF: 0 quetiapine 50 mg tablet 50 mg PO TID RF: 0 Jardiance 10 mg tablet 10 mg PO DAILY RF: 0 Discharge Orders: Discharge Order (Routine); Ordered 04/26/20 Ordered By: Nakia Henderson/Other Patient Handouts: COPD: Wheezing and Chest Tightness, When You Have COPD and Type 2 Diabetes, What Is GERD?, Chronic Lung Disease Quit Smoking, Identifying Causes of Stress Admission Data Admit Date/Time: 04/25/20 17:32 Attending Provider: Nakia Stanford Admit Provider: Maximilian Lundberg Primary Care Provider: Diogo Buckner V. Other Providers: Maximilian Lundberg ; Diogo Ceron ; Marin Nielsen ; Von Quiles ; Tian Mittal ; Jamie Jones ; Mateusz Huang ; Sylvia Mccann ; Dahiana Rodrigues ; Daniel Li Other Interventions: Discharge Summary Assessment (RN) Last Done: 04/26/20 16:55
== END 2020-04-26 17:24 | disposition home or self-care (01) ==
LOC: 2S 13:52 → ED 13:52 → SUATTDRO 17:32 → 2S 17:51
DX: Z88.2 Allergy status to sulfonamides; F17.200 Nicotine dependence, unspecified, uncomplicated; G43.909 Migraine, unspecified, not intractable, without status migrainosus; K21.9 Gastro-esophageal reflux disease without esophagitis; Z88.5 Allergy status to narcotic agent; Z88.8 Allergy status to other drugs, medicaments and biological substances; F32.9 Major depressive disorder, single episode, unspecified; Z79.899 Other long term (current) drug therapy; Z91.030 Bee allergy status; R07.2 Precordial pain; Z88.1 Allergy status to other antibiotic agents; E11.22 Type 2 diabetes mellitus with diabetic chronic kidney disease; N18.30 Chronic kidney disease, stage 3 unspecified; J44.9 Chronic obstructive pulmonary disease, unspecified